=== PATIENT | male | born 1980 | race Hispanic/Latino ===

== ENCOUNTER 2023-01-26 14:05 | Emergency (ER) | payer OTHER ==
[2023-01-26] MEDS ORDERED: AZIT250T9 PO (15:58)
[2023-01-26] MEDS ORDERED: BENZ-39 PO (15:58)
[2023-01-26 16:25] VITALS: BP 102/56
== END 2023-01-26 16:37 | disposition home or self-care (01) ==
LOC: EDH 14:05
DX: J40 Bronchitis, not specified as acute or chronic (principal); G56.00 Carpal tunnel syndrome, unspecified upper limb; Z20.822 Contact with and (suspected) exposure to COVID-19
CPT/HCPCS: 99283; 87635; 87804 ×2; C9803